=== PATIENT | female | born 1970 | race Caucasian/White ===

== ENCOUNTER 2018-10-24 14:42 | Inpatient (IN) | payer BC ==
--- NOTE | 2018-10-24 15:30 | ED ---
General Adult HPI - General Chief complaint: Abdominal Pain Stated complaint: possible appendicitis Time Seen by Provider: 10/24/18 15:06 Source: patient, RN notes reviewed, old records reviewed Mode of arrival: ambulatory Limitations: no limitations - History of Present Illness Initial comments: 47-year-old female patient past history significant for cholecystectomy and she was approximately 5 years old presents to ED a chief complaint of right lower qu adrant abdominal pain for 2 days. Patient reports that it started yesterday and is waxing and waning. Patient reports that has been persistent today. Patient states that she was seen by her primary care provider who recommended evaluation in the ED for possible appendicitis. Patient reports nausea without emesis. Patient reports decreased appetite. Denies any fevers or chills. Denies any ch donovan to be . Denies any other complaints. Systemic: Pt denies fatigue, fever/chills, rash. Pt denies weakness, night sweats, weight loss. Neuro: Pt denies headache, visual disturbances, syncope or pre-syncope. HEENT: Pt denies ocular discharge or irritation, otalgia, rhinorrhea, pharyngit is or notable lymphadenopathy. Cardiopulmonary: Pt denies chest pain, SOB, heart palpitations, dyspnea on exertion. Abdominal/GI: Pt denies v/d. : Pt denies dysuria, burning w/ urination, frequency/urgency. Denies new onset urinary or bowel incontinence. MSK: Pt denies myalgia, loss of strength or function in extremities. Neuro: Pt denies new onset weakness, paresthesias. - Related Data Allergies Allergy/AdvReac Type Severity Reaction Status Date / Time No Known Allergies Allergy Verified 10/24/18 14:46 Review of Systems ROS Statement: Those systems with pertinent positive or pertinent negative responses have been documented in the HPI. ROS Other: All systems not noted in ROS Statement are negative. Past Medical History Past Medical History: No Reported History History of Any Multi-Drug Resistant Organisms: None Reported Past Surgical History: Cholecystectomy Past Psychological History: No Psychological Hx Reported Smoking Status: Never smoker Past Alcohol Use History: Occasional Past Drug Use History: None Reported General Exam - General Exam Comments Initial Comments: Constitutional: NAD, AOX3, Pt has pleasant affect. HEENT: NC/AT, trachea midline, neck supple, no lymphadenopathy. Posterior pharynx non erythematous, without exudates. External ears appear normal, without discharge. Mucous membranes moist. Eyes PERRLA, EOM intact. There is no scleral icterus. No pallor noted. Cardiopulmonary: RRR, no murmurs, rubs or gallops, no JVD noted. Lungs CTAB in anterior and posterior shannon. No peripheral edema. Abdominal exam: Abdomen soft and non-distended. Abdomen tender to palpation in RLQ, no other areas of abodominal tenderness. Bowel sounds active in LLQ. No hep atosplenomegaly. No ecchymosis Neuro: CN II-XII grossly intact. No nuchal rigidity. No raccon eyes, no valencia sign, no hemotympanum. No cervical spinal tenderness. MSK: No posterior calf tenderness bilaterally, homans sign negative bilaterally. Posterior tibialis and radial pulse +2 bilaterally. Sensation intact in upper and lower extremities. Full active ROM in upper and lower extremities, 5/5 s tregnth. Limitations: no limitations Course Vital Signs 10/24/18 10/24/18 14:44 16:40 Temperature 99.4 F 98.4 F Pulse Rate 120 H 105 H Respiratory 22 18 Rate Blood Pressure 133/89 133/93 O2 Sat by Pulse 100 98 Oximetry Medical Decision Making - Medical Decision Making 47-year-old female patient past history significant for cholecystectomy and she was approximately 5 years old presents to ED a chief complaint of right lower quadrant abdominal pain for 2 days. Patient reports that it started yesterday and is waxing and waning. Patient reports that has been persistent today. Patient states that she was seen by her primary care provider who recommended evaluation in the ED for possible appendicitis. Patient reports nausea without emesis. Patient reports decreased appetite. Denies any fevers or chills. Denies any change to be . Denies any other complaints. Patient vital signs stable, afebrile. Physical exam displayed right lower quadrant tenderness. Laboratory investigations revealed leukocytosis of 17. Less for ketones, otherwise non-impressive. CT abdomen and pelvis display findings consistent with acute appendicitis. Patient initiated on Zosyn. Patient be admitted on-call general surgeon Dr. Reyna. Case discussed with Dr. Sherwood. - Lab Data Result diagrams: 10/24/18 15:28 10/24/18 15:28 Lab Results 10/24/18 10/24/18 10/24/18 Range/Units 15:28 15:28 15:28 WBC 17.4 H (3.8-10.6) k/uL RBC 4.77 (3.80-5.40) m/uL Hgb 14.6 (11.4-16.0) gm/dL Hct 42.5 (34.0-46.0) % MCV 89.1 (80.0-100.0) fL MCH 30.6 (25.0-35.0) pg MCHC 34.4 (31.0-37.0) g/dL RDW 13.6 (11.5-15.5) % Plt Count 248 (150-450) k/uL Neutrophils % 88 % Lymphocytes % 6 % Monocytes % 4 % Eosinophils % 1 % Basophils % 0 % Neutrophils # 15.4 H (1.3-7.7) k/uL Lymphocytes # 1.1 (1.0-4.8) k/uL Monocytes # 0.7 (0-1.0) k/uL Eosinophils # 0.1 (0-0.7) k/uL Basophils # 0.1 (0-0.2) k/uL Sodium 140 (137-145) mmol/L Potassium 4.2 (3.5-5.1) mmol/L Chloride 104 (98-107) mmol/L Carbon Dioxide 21 L (22-30) mmol/L Anion Gap 15 mmol/L BUN 9 (7-17) mg/dL Creatinine 0.73 (0.52-1.04) mg/dL Est GFR (CKD-EPI)AfAm >90 (>60 ml/min/1.73 sqM) Est GFR (CKD-EPI)NonAf >90 (>60 ml/min/1.73 sqM) Glucose 110 H (74-99) mg/dL Plasma Lactic Acid Humberto (0.7-2.0) mmol/L Calcium 9.3 (8.4-10.2) mg/dL Total Bilirubin 1.0 (0.2-1.3) mg/dL AST 20 (14-36) U/L ALT 18 (9-52) U/L Alkaline Phosphatase 67 (38-126) U/L Total Protein 7.6 (6.3-8.2) g/dL Albumin 4.3 (3.5-5.0) g/dL Lipase 240 (23-300) U/L Urine Color Urine Appearance (Clear) Urine pH (5.0-8.0) Ur Specific [facility] (1.001-1.035) Urine Protein (Negative) Urine Glucose (UA) (Negative) Urine Ketones (Negative) Urine Blood (Negative) Urine Nitrite (Negative) Urine Bilirubin (Negative) Urine Urobilinogen (<2.0) mg/dL Ur Leukocyte Esterase (Negative) Urine RBC (0-5) /hpf Urine WBC (0-5) /hpf Ur Squamous Epith Cells (0-4) /hpf Urine Bacteria (None) /hpf Hyaline Casts (0-2) /lpf Urine Mucus (None) /hpf Urine HCG, Qual Not Detected (Not Detectd) 10/24/18 10/24/18 Range/Units 15:28 15:28 WBC (3.8-10.6) k/uL RBC (3.80-5.40) m/uL Hgb (11.4-16.0) gm/dL Hct (34.0-46.0) % MCV (80.0-100.0) fL MCH (25.0-35.0) pg MCHC (31.0-37.0) g/dL RDW (11.5-15.5) % Plt Count (150-450) k/uL Neutrophils % % Lymphocytes % % Monocytes % % Eosinophils % % Basophils % % Neutrophils # (1.3-7.7) k/uL Lymphocytes # (1.0-4.8) k/uL Monocytes # (0-1.0) k/uL Eosinophils # (0-0.7) k/uL Basophils # (0-0.2) k/uL Sodium (137-145) mmol/L Potassium (3.5-5.1) mmol/L Chloride (98-107) mmol/L Carbon Dioxide (22-30) mmol/L Anion Gap mmol/L BUN (7-17) mg/dL Creatinine (0.52-1.04) mg/dL Est GFR (CKD-EPI)AfAm (>60 ml/min/1.73 sqM) Est GFR (CKD-EPI)NonAf (>60 ml/min/1.73 sqM) Glucose (74-99) mg/dL Plasma Lactic Acid Humberto 0.9 (0.7-2.0) mmol/L Calcium (8.4-10.2) mg/dL Total Bilirubin (0.2-1.3) mg/dL AST (14-36) U/L ALT (9-52) U/L Alkaline Phosphatase (38-126) U/L Total Protein (6.3-8.2) g/dL Albumin (3.5-5.0) g/dL Lipase (23-300) U/L Urine Color Yellow Urine Appearance Cloudy H (Clear) Urine pH 6.5 (5.0-8.0) Ur Specific [facility] 1.019 (1.001-1.035) Urine Protein 2+ H (Negative) Urine Glucose (UA) Trace H (Negative) Urine Ketones 4+ H (Negative) Urine Blood Negative (Negative) Urine Nitrite Negative (Negative) Urine Bilirubin 1+ H (Negative) Urine Urobilinogen 2.0 (<2.0) mg/dL Ur Leukocyte Esterase Negative (Negative) Urine RBC 3 (0-5) /hpf Urine WBC 13 H (0-5) /hpf Ur Squamous Epith Cells 4 (0-4) /hpf Urine Bacteria Moderate H (None) /hpf Hyaline Casts 13 H (0-2) /lpf Urine Mucus Many H (None) /hpf Urine HCG, Qual (Not Detectd) Disposition Clinical Impression: Acute appendicitis Disposition: ADMITTED IP TO THIS HOSP Condition: Serious Is patient prescribed a controlled substance at d/c from ED?: No Referrals: Evonne Valencia MD [Primary Care Provider] - 1-2 days
[2018-10-24 15:55] LABS: Appearance,Urine Cloudy (Clear); Bacteria,Urine Moderate /hpf; Bilirubin,Urine 1+ (Negative); Blood,Urine Negative (Negative); Color,Urine Yellow; Glucose,Urine (UA) Trace (Negative); Hyaline Casts,Urine 13 /lpf (0-2); Ketones,Urine 4+ (Negative); Leukocyte Esterase,Urine Negative (Negative); Mucus,Urine Many /hpf; Nitrite,Urine Negative (Negative); PH, Urine 6.5 (5.0-8.0); Protein,Urine 2+ (Negative); RBC,Urine 3 /hpf (0-5); Specific Gravity,Urine 1.019 (1.001-1.035); Squamous Epithelial Cell,Urine 4 /hpf (0-4); WBC,Urine 13 /hpf (0-5)
[2018-10-24 16:01] LABS: Basophils # (A) 0.1 k/uL (0-0.2); Basophils % (A) 0 %; Eosinophils # (A) 0.1 k/uL (0-0.7); Eosinophils % (A) 1 %; HCT 42.5 % (34.0-46.0); HGB 14.6 gm/dL (11.4-16.0); Lymphocytes # (A) 1.1 k/uL (1.0-4.8); Lymphocytes % (A) 6 %; MCH 30.6 pg (25.0-35.0); MCHC 34.4 g/dL (31.0-37.0); MCV 89.1 fL (80.0-100.0); Mean Platelet Volume 7.3; Monocytes # (A) 0.7 k/uL (0-1.0); Monocytes % (A) 4 %; Neutrophils # (A) 15.4 k/uL (1.3-7.7); Neutrophils % (A) 88 %; Platelet Count 248 k/uL (150-450); RBC 4.77 m/uL (3.80-5.40); RDW 13.6 % (11.5-15.5); WBC 17.4 k/uL (3.8-10.6)
[2018-10-24 16:09] LABS: ALT 18 U/L (9-52); AST 20 U/L (14-36); African American GFR (CKD) >90 (>60 ml/min/1.73 sqM); Albumin 4.3 g/dL (3.5-5.0); Alkaline Phosphatase 67 U/L (38-126); Anion Gap 15 mmol/L; Blood Urea Nitrogen 9 mg/dL (7-17); Calcium 9.3 mg/dL (8.4-10.2); Carbon Dioxide 21 mmol/L (22-30); Chloride 104 mmol/L (98-107); Glucose 110 mg/dL (74-99); Potassium 4.2 mmol/L (3.5-5.1); Sodium 140 mmol/L (137-145); Total Protein 7.6 g/dL (6.3-8.2)
--- NOTE | 2018-10-24 16:32 | CT ---
EXAMINATION TYPE: CT abdomen pelvis w con DATE OF EXAM: 10/24/2018 COMPARISON: None HISTORY: RLQ pain CT DLP: 1173.1 mGycm CONTRAST: CT scan of the abdomen and pelvis is performed without Oral Contrast and with IV Contrast, patient in jected with 100 mL of Isovue 300. FINDINGS: LUNG BASES-: No visible nodule. No infiltrate. Right basilar atelectasis. LIVER/GB: No calcified gallstones. No space occupying hepatic lesion. Biliary tree is of normal ca liber. PANCREAS: No inflammation. No distinct mass. SPLEEN: No splenic enlargement. No lesion seen. ADRENALS: No nodule. No thickening. KIDNEYS/BLADDER: No hydronephrosis. No nephrolithiasis. No distinct renal mass. Urinary bladder g rossly unremarkable. BOWEL: Dilated appendix measuring up to 1.8 cm with surrounding inflammatory change and appendicolith . Adjacent fluid identified. No obvious rupture at this time. Distention of small bowel compatible wi th ileus. GENITAL ORGANS: Lateral ovarian cysts noted. Uterus is unremarkable. LYMPH NODES: No greater than 1cm abdominal or pelvic lymph nodes are appreciated. AORTA: No significant abnormality. OSSEOUS STRUCTURES: No significant abnormality is seen. OTHER: No significant additional abnormality is seen. IMPRESSION: 1. Findings compatible with acute appendicitis as discussed above.
[2018-10-24] MEDS ORDERED: PIPERACILLIN-TAZOBACTAM 3.375 GM in SODIUM CHLORIDE 0.9% 100 ML IVPB STA (16:48)
[2018-10-24] MEDS ORDERED: NALOXONE 0.4 MG/ML 1 ML VIAL IV PRN (17:39)
[2018-10-24] MEDS ORDERED: MORPHINE SULFATE 4 MG/ML SYRINGE IV PRN (17:39)
[2018-10-24] MEDS ORDERED: ONDANSETRON 4 MG/2 ML VIAL IVP PRN (17:39)
[2018-10-24] MEDS: SODIUM CHLORIDE 0.9% 1,000 ML IV SCH (18:01)
[2018-10-24 18:55] VITALS: BMI 32.1
[2018-10-25] MEDS: PIPERACILLIN-TAZOBACTAM 3.375 GM in SODIUM CHLORIDE 0.9% 100 ML IVPB SCH ×2 (00:18→09:06)
[2018-10-25] MEDS: SODIUM CHLORIDE 0.9% 1,000 ML IV SCH ×2 (08:15→11:43)
[2018-10-25] MEDS: HEPARIN SODIUM,PORCINE 5,000 UNIT/ML 1 ML VIAL SQ SCH ×2 (08:17→08:50)
[2018-10-25] MEDS ORDERED: IV FLUID CONTINUATION 250 ML IV ONE (08:19)
[2018-10-25] MEDS: PANTOPRAZOLE 40 MG/10 ML VIAL IVP SCH (08:19)
[2018-10-25] MEDS ORDERED: SCOPOLAMINE 1.5MG/72HR PATCH TRANSDERM ONE (08:35)
[2018-10-25] MEDS ORDERED: ONDANSETRON 4 MG/2 ML VIAL IVP ONE (08:35)
[2018-10-25] MEDS ORDERED: DEXAMETHASONE SOD PHOSPHATE 10 MG/ML 1 ML VIAL IV ONE (08:35)
--- NOTE | 2018-10-25 08:52 | P.GSHP ---
History of Present Illness H&P Date: 10/25/18 Chief Complaint: Acute appendicitis This a 47-year-old female who was admitted through the emergency room with complaints of appendicitis. Patient is a 24 hour history of right lower quadrant pain. Her CAT scan shows evidence of appendicitis. Past Medical History Past Medical History: No Reported History History of Any Multi-Drug Resistant Organisms: None Reported Past Surgical History: Cholecystectomy Additional Past Surgical History / Comment(s): wisdom teeth Past Anesthesia/Blood Transfusion Reactions: Motion Sickness, Postoperative Nausea & Vomiting (PONV) Past Psychological History: No Psychological Hx Reported Smoking Status: Never smoker Past Alcohol Use History: Occasional Past Drug Use History: None Reported - Past Family History Mother History Unknown: Yes Medications and Allergies Home Medications Medication Instructions Recorded Confirmed Type Ascorbic Acid [Vitamin C] 500 mg PO DAILY 10/24/18 10/24/18 History Cetirizine HCl [Zyrtec] 10 mg PO DAILY PRN 10/24/18 10/24/18 History Cholecalciferol [Vitamin D3 (25 4,000 unit PO DAILY 10/24/18 10/24/18 History Mcg = 1000 Iu)] Cider Vinegar [Apple Cider Vinegar] 300 mg PO DAILY 10/24/18 10/24/18 History Cyanocobalamin [Vitamin B-12] 500 mcg PO DAILY 10/24/18 10/24/18 History Naproxen Sodium [Aleve] 440 mg PO BID PRN 10/24/18 10/24/18 History Vitamin B-3 1,000mg 1,000 mg PO DAILY 10/24/18 10/24/18 History Allergies Allergy/AdvReac Type Severity Reaction Status Date / Time No Known Allergies Allergy Verified 10/25/18 08:38 Surgical - Exam Vital Signs Temp Pulse Resp BP Pulse Ox 99.4 F 120 H 22 133/89 100 10/24/18 14:44 10/24/18 14:44 10/24/18 14:44 10/24/18 14:44 10/24/18 14:44 - General well developed, well nourished, no distress - Eyes PERRL - ENT normal pinna - Neck no masses - Respiratory normal expansion - Cardiovascular Rhythm: regular - Abdomen Mild right lower quadrant pain Abdomen: soft Results - Labs 10/24/18 15:28 10/24/18 15:28 Abnormal Lab Results - Last 24 Hours (Table) 10/24/18 10/24/18 10/24/18 Range/Units 15:28 15:28 15:28 WBC 17.4 H (3.8-10.6) k/uL Neutrophils # 15.4 H (1.3-7.7) k/uL Carbon Dioxide 21 L (22-30) mmol/L Glucose 110 H (74-99) mg/dL Plasma Lactic Acid Humberto (0.7-2.0) mmol/L Urine Appearance Cloudy H (Clear) Urine Protein 2+ H (Negative) Urine Glucose (UA) Trace H (Negative) Urine Ketones 4+ H (Negative) Urine Bilirubin 1+ H (Negative) Urine WBC 13 H (0-5) /hpf Urine Bacteria Moderate H (None) /hpf Hyaline Casts 13 H (0-2) /lpf Urine Mucus Many H (None) /hpf 10/25/18 Range/Units 01:31 WBC (3.8-10.6) k/uL Neutrophils # (1.3-7.7) k/uL Carbon Dioxide (22-30) mmol/L Glucose (74-99) mg/dL Plasma Lactic Acid Humberto <0.5 L (0.7-2.0) mmol/L Urine Appearance (Clear) Urine Protein (Negative) Urine Glucose (UA) (Negative) Urine Ketones (Negative) Urine Bilirubin (Negative) Urine WBC (0-5) /hpf Urine Bacteria (None) /hpf Hyaline Casts (0-2) /lpf Urine Mucus (None) /hpf Diabetes panel 10/24/18 Range/Units 15:28 Sodium 140 (137-145) mmol/L Potassium 4.2 (3.5-5.1) mmol/L Chloride 104 (98-107) mmol/L Carbon Dioxide 21 L (22-30) mmol/L BUN 9 (7-17) mg/dL Creatinine 0.73 (0.52-1.04) mg/dL Glucose 110 H (74-99) mg/dL Calcium 9.3 (8.4-10.2) mg/dL AST 20 (14-36) U/L ALT 18 (9-52) U/L Alkaline Phosphatase 67 (38-126) U/L Total Protein 7.6 (6.3-8.2) g/dL Albumin 4.3 (3.5-5.0) g/dL Calcium panel 10/24/18 Range/Units 15:28 Calcium 9.3 (8.4-10.2) mg/dL Albumin 4.3 (3.5-5.0) g/dL Pituitary panel 10/24/18 Range/Units 15:28 Sodium 140 (137-145) mmol/L Potassium 4.2 (3.5-5.1) mmol/L Chloride 104 (98-107) mmol/L Carbon Dioxide 21 L (22-30) mmol/L BUN 9 (7-17) mg/dL Creatinine 0.73 (0.52-1.04) mg/dL Glucose 110 H (74-99) mg/dL Calcium 9.3 (8.4-10.2) mg/dL Adrenal panel 10/24/18 Range/Units 15:28 Sodium 140 (137-145) mmol/L Potassium 4.2 (3.5-5.1) mmol/L Chloride 104 (98-107) mmol/L Carbon Dioxide 21 L (22-30) mmol/L BUN 9 (7-17) mg/dL Creatinine 0.73 (0.52-1.04) mg/dL Glucose 110 H (74-99) mg/dL Calcium 9.3 (8.4-10.2) mg/dL Total Bilirubin 1.0 (0.2-1.3) mg/dL AST 20 (14-36) U/L ALT 18 (9-52) U/L Alkaline Phosphatase 67 (38-126) U/L Total Protein 7.6 (6.3-8.2) g/dL Albumin 4.3 (3.5-5.0) g/dL - Imaging CT scan - pelvis: report reviewed (Acute appendicitis) Assessment and Plan Assessment: Acute appendicitis. We'll perform laparoscopic appendectomy.
[2018-10-25 08:55] LABS: Basophils % (A) 0 %; Eosinophils % (A) 0 %; HCT 37.8 % (34.0-46.0); HGB 12.8 gm/dL (11.4-16.0); Lymphocytes # (A) 0.8 k/uL (1.0-4.8); Lymphocytes % (A) 5 %; MCH 30.5 pg (25.0-35.0); MCV 89.8 fL (80.0-100.0); Mean Platelet Volume 7.2; Monocytes # (A) 0.6 k/uL (0-1.0); Monocytes % (A) 4 %; Neutrophils # (A) 13.7 k/uL (1.3-7.7); Neutrophils % (A) 90 %; Platelet Count 215 k/uL (150-450); RBC 4.21 m/uL (3.80-5.40); RDW 13.4 % (11.5-15.5); WBC 15.2 k/uL (3.8-10.6)
[2018-10-25 09:03] LABS: African American GFR (CKD) >90 (>60 ml/min/1.73 sqM); Anion Gap 13 mmol/L; Blood Urea Nitrogen 9 mg/dL (7-17); Calcium 8.4 mg/dL (8.4-10.2); Carbon Dioxide 19 mmol/L (22-30); Chloride 108 mmol/L (98-107); Glucose 104 mg/dL (74-99); Potassium 3.8 mmol/L (3.5-5.1); Sodium 140 mmol/L (137-145)
[2018-10-25] MEDS ORDERED: IV FLUID CONTINUATION 800 ML IV ONE (09:04)
[2018-10-25] MEDS ORDERED: SUCCINYLCHOLINE CHLORIDE 100 MG/5 ML SYR IV ONE (09:05)
[2018-10-25] MEDS ORDERED: KETOROLAC 30 MG/ML 1 ML VIAL ONE (09:05)
[2018-10-25] MEDS ORDERED: ROCURONIUM BROMIDE 10 MG/ML 10 ML VIAL IV ONE (09:05)
[2018-10-25] MEDS ORDERED: MIDAZOLAM 2 MG/2 ML VIAL ONE (09:05)
[2018-10-25] MEDS ORDERED: NEOSTIGMINE 1 MG/ML 10 ML VIAL ONE (09:05)
[2018-10-25] MEDS ORDERED: PROPOFOL 10 MG/ML 20 ML VIAL IV ONE (09:05)
[2018-10-25] MEDS ORDERED: HYDROmorphone (PF) 1 MG/ML ONE (09:05)
[2018-10-25] MEDS ORDERED: LIDOCAINE 1% INJ 10MG/ML (20 ML MDV) ONE (09:05)
[2018-10-25] MEDS ORDERED: GLYCOPYRROLATE 0.2 MG/ML 2 ML VIAL ONE (09:05)
[2018-10-25] MEDS ORDERED: fentaNYL (PF) 50 MCG/ML 2 ML AMP ONE (09:05)
[2018-10-25] MEDS ORDERED: BUPIVACAINE (PF) 0.5% 30 ML VIAL SQ ONE (09:26)
[2018-10-25] MEDS ORDERED: LACTATED RINGERS 1,000 ML IV ONE ×2 (10:04→10:35)
[2018-10-25] MEDS ORDERED: NALOXONE 0.4 MG/ML 1 ML VIAL IV PRN (10:35)
[2018-10-25] MEDS ORDERED: METOCLOPRAMIDE 5 MG/ML 2 ML VIAL IVP PRN (10:35)
[2018-10-25] MEDS ORDERED: ONDANSETRON 4 MG/2 ML VIAL IVP PRN (10:35)
[2018-10-25] MEDS ORDERED: ACETAMINOPHEN TAB 325 MG TAB PO PRN (10:35)
[2018-10-25] MEDS ORDERED: ACETAMINOPHEN IV (For NPO) 1,000 MG in EMPTY BAG 1 BAG IVPB ONE (11:00)
--- NOTE | 2018-10-25 11:26 | P.OP ---
Date of Procedure: 10/25/18 Preoperative Diagnosis: Acute appendicitis Postoperative Diagnosis: Acute perforated appendicitis with abscess Procedure(s) Performed: Less laparoscopy Drainage of pelvic abscess Open appendectomy Anesthesia: TORY Surgeon: Scott Ang Pathology: other (Appendix, fecalith) Condition: stable Disposition: PACU Description of Procedure: HThe patient's placed on the operating table in the supine position. The patient received general anesthesia. The abdomen was prepped and draped in the usual sterile fashion. The skin was anesthetized 1% local Xylocaine at the trocar sites. Using an 11 blade the skin was incised at the umbilicus. The umbilicus was grasped with a Elsie clamp and then a Veress needle was placed into the peritoneal cavity. Position of the Veress needle was confirmed with positive drop test. After adequate insufflation a 5 mm trocar was placed into the peritoneal cavity. The abdomen was further insufflated. And then the laparoscope was placed in the peritoneal cavity. Next a 5 mm trocar was placed in the midline suprapubic position. And then a 10 mm trocar was placed in the midline epigastric position. The patient was rotated with the right side up and in Trendelenburg. The appendix was visualized. The appendix appeared to be inflamed. The appendix was grasped and rotated medially. There was a abscess lysed. There appeared to be a perforation of the appendix with abscess. The abscess cavity is irrigated and aspirated. His was quite firmly attached to the bowel. It was impossible dissect the appendix to the inflammation. This point decided to perform an open appendectomy. The trochars withdrawn. The skin was incised in the midline in the periumbilical area. The fascia was divided with cautery. And then the appendix and cecum were visualized. The cecum was brought into the wound. And then the appendix was bluntly dissected off the cecum. The mesentery the appendix was divided using the Harmonic scissors. The appendix was ligated using a Endoloop. And then the appendix was transected using Harmonic scissors. The abdomen was irrigated there is no bleeding seen. The EITAN drain is placed in the right pelvis and brought out through the 5 mm trocar site. The fascia was closed with #1 PDS suture. Skin was closed jennifer. Patient top she will was sent to recovery room stable condition.
[2018-10-25] MEDS: KETOROLAC 30 MG/ML 1 ML VIAL IVP SCH ×3 (11:44→23:55)
[2018-10-25] MEDS ORDERED: LORATADINE 10 MG TAB PO PRN (15:24)
[2018-10-25] MEDS: HYDROmorphone 1 MG/ML 1 ML SYRINGE IVP PRN ×2 (15:24→20:43)
--- NOTE | 2018-10-25 15:43 | P.CONS ---
History of Present Illness - Reason for Consult Consult date: 10/25/18 Perforated appendicitis Requesting physician: Scott Ang - Chief Complaint Abdominal pain 2 days - History of Present Illness Patient is a 47-year-old female otherwise healthy presenting to the ER at [facility] yesterday afternoon with a chief complaints of 1 day history of abdominal pain, the patient said the pain was mostly in the right lower abdominal area and started on Sunday pain described to be more of a shop in nature and has gone almost to 8 out of 10 in severity by the time she presented to the hospital at a later patient has felt nauseated but no vomiting and denies having any diarrhea or any constipation the patient did have some chills but denies high-grade fever with the symptoms the patient presented to the hospital patient on arrival to the area did have low-grade fever of 99.4, the patient did have elevated white count was 17.[address] of abdominal pelvis that has been suggestive of acute appendicitis the patient has been taken to the OR this morning she was noticed to have perforated appendicitis with a pelvic abscess status post open appendectomy and drainage of this abscess the patient was started on Zosyn and infectious disease was consulted for further recommendation regarding antibiotic therapy, patient currently denies having any recent antibiotic exposure Review of Systems Positive point has been mentioned in the HPI rest of the systems are negative Past Medical History Past Medical History: No Reported History History of Any Multi-Drug Resistant Organisms: None Reported Past Surgical History: Cholecystectomy Additional Past Surgical History / Comment(s): wisdom teeth Past Anesthesia/Blood Transfusion Reactions: Motion Sickness, Postoperative Nausea & Vomiting (PONV) Past Psychological History: No Psychological Hx Reported Smoking Status: Never smoker Past Alcohol Use History: Occasional Past Drug Use History: None Reported - Past Family History Mother History Unknown: Yes Medications and Allergies Home Medications Medication Instructions Recorded Confirmed Type Ascorbic Acid [Vitamin C] 500 mg PO DAILY 10/24/18 10/24/18 History Cetirizine HCl [Zyrtec] 10 mg PO DAILY PRN 10/24/18 10/24/18 History Cholecalciferol [Vitamin D3 (25 4,000 unit PO DAILY 10/24/18 10/24/18 History Mcg = 1000 Iu)] Cider Vinegar [Apple Cider Vinegar] 300 mg PO DAILY 10/24/18 10/24/18 History Cyanocobalamin [Vitamin B-12] 500 mcg PO DAILY 10/24/18 10/24/18 History Naproxen Sodium [Aleve] 440 mg PO BID PRN 10/24/18 10/24/18 History Vitamin B-3 1,000mg 1,000 mg PO DAILY 10/24/18 10/24/18 History Allergies Allergy/AdvReac Type Severity Reaction Status Date / Time No Known Allergies Allergy Verified 10/25/18 08:38 Physical Exam Vitals: Vital Signs Temp Pulse Pulse Resp BP BP Pulse Ox 10/25/18 11:15 98.2 F 98 16 108/66 95 10/25/18 10:45 95 16 126/69 95 10/25/18 10:30 83 16 110/67 100 10/25/18 10:18 98.5 F 85 12 109/64 100 10/25/18 08:30 99.3 F 110 H 16 138/82 100 10/25/18 08:03 98.8 F 115 H 24 118/76 99 10/24/18 23:00 98.3 F 113 H 18 119/71 94 L 10/24/18 18:48 98.3 F 128 H 20 128/81 95 10/24/18 18:01 110 H 18 136/92 98 10/24/18 16:40 98.4 F 105 H 18 133/93 98 10/24/18 14:44 99.4 F 120 H 22 133/89 100 Intake and Output 10/24/18 10/25/18 10/25/18 22:59 06:59 14:59 Intake Total 580 0 1250 Output Total 90 Balance 580 0 1160 Intake: IV 1250 Oral 580 0 Output: Estimated Blood Loss 90 GENERAL DESCRIPTION: Middle-aged female lying in bed, no distress. No tachypnea or accessory muscle of respiration use. HEENT: Shows Pallor , no scleral icterus. Oral mucous membrane is dry. No pharyngeal erythema or thrush NECK: Trachea central, no thyromegaly. LUNGS: Unlabored breathing. Clear to auscultation anteriorly. No wheeze or crackle. HEART: S1, S2, regular rate and rhythm. No loud murmur ABDOMEN: Soft, mild right lower quadrant tenderness , no guarding or rigidity, no organomegaly EXTREMITIES: No edema of feet. SKIN: No rash, no masses palpable. NEUROLOGICAL: The patient is awake, alert, oriented x3, mood and affect normal. Results CBC & Chem 7: 10/25/18 08:03 10/25/18 08:03 Labs: Abnormal Lab Results - Last 24 Hours (Table) 10/24/18 10/24/18 10/24/18 Range/Units 15:28 15:28 15:28 WBC 17.4 H (3.8-10.6) k/uL Neutrophils # 15.4 H (1.3-7.7) k/uL Lymphocytes # (1.0-4.8) k/uL Chloride (98-107) mmol/L Carbon Dioxide 21 L (22-30) mmol/L Glucose 110 H (74-99) mg/dL Plasma Lactic Acid Humberto (0.7-2.0) mmol/L Urine Appearance Cloudy H (Clear) Urine Protein 2+ H (Negative) Urine Glucose (UA) Trace H (Negative) Urine Ketones 4+ H (Negative) Urine Bilirubin 1+ H (Negative) Urine WBC 13 H (0-5) /hpf Urine Bacteria Moderate H (None) /hpf Hyaline Casts 13 H (0-2) /lpf Urine Mucus Many H (None) /hpf 10/25/18 10/25/18 10/25/18 Range/Units 01:31 08:03 08:03 WBC 15.2 H (3.8-10.6) k/uL Neutrophils # 13.7 H (1.3-7.7) k/uL Lymphocytes # 0.8 L (1.0-4.8) k/uL Chloride 108 H (98-107) mmol/L Carbon Dioxide 19 L (22-30) mmol/L Glucose 104 H (74-99) mg/dL Plasma Lactic Acid Humberto <0.5 L (0.7-2.0) mmol/L Urine Appearance (Clear) Urine Protein (Negative) Urine Glucose (UA) (Negative) Urine Ketones (Negative) Urine Bilirubin (Negative) Urine WBC (0-5) /hpf Urine Bacteria (None) /hpf Hyaline Casts (0-2) /lpf Urine Mucus (None) /hpf Assessment and Plan Assessment: 1-patient presented to hospital with abdominal pain in this patient who did have noted fever and elevated white count with concern for acute appendicitis on surgery noticed to have pelvic abscess and perforated appendicitis will need to cover for enteric gram-negative both aerobes and anaerobes in this patient who do not have any history of hospitalization or antibiotic exposure could be sensi tive pathogen such as E. coli and Bacteroides species (1) Pelvic abscess Current Visit: Yes Status: Acute Code(s): TAA6086 - SNOMED Code(s): 579685766 (2) Perforated appendicitis Current Visit: Yes Status: Acute Code(s): K35.32 - ACUTE APPENDICITIS WITH PERF AND LOC PERITONITIS, W/O ABSCS SNOMED Code(s): 45740751 Plan: 1-discontinue Zosyn 2-start the patient on Unasyn 3 g every 6 hours 3-gentle IV fluid We will follow on clinical condition and cultures to further adjust medication if needed Thank you for this consultation will follow this patient with you Time with Patient: Greater than 30
[2018-10-25] MEDS: AMPICILLIN-SULBACTAM 3 GM in SODIUM CHLORIDE 0.9% 100 ML IVPB SCH ×2 (18:56→23:55)
[2018-10-25] MEDS: FAMOTIDINE 20 MG TAB PO SCH (20:44)
[2018-10-26] MEDS: HYDROmorphone 1 MG/ML 1 ML SYRINGE IVP PRN (05:53)
[2018-10-26] MEDS: KETOROLAC 30 MG/ML 1 ML VIAL IVP SCH ×3 (05:54→18:03)
[2018-10-26] MEDS: AMPICILLIN-SULBACTAM 3 GM in SODIUM CHLORIDE 0.9% 100 ML IVPB SCH ×3 (05:54→18:09)
[2018-10-26 06:13] LABS: Basophils % (A) 0 %; Eosinophils # (A) 0.1 k/uL (0-0.7); Eosinophils % (A) 1 %; HCT 32.1 % (34.0-46.0); HGB 10.7 gm/dL (11.4-16.0); Lymphocytes % (A) 8 %; MCH 30.2 pg (25.0-35.0); MCHC 33.4 g/dL (31.0-37.0); MCV 90.7 fL (80.0-100.0); Mean Platelet Volume 7.5; Monocytes # (A) 0.6 k/uL (0-1.0); Monocytes % (A) 5 %; Neutrophils # (A) 10.7 k/uL (1.3-7.7); Neutrophils % (A) 86 %; Platelet Count 213 k/uL (150-450); RBC 3.54 m/uL (3.80-5.40); RDW 14.6 % (11.5-15.5); WBC 12.5 k/uL (3.8-10.6)
[2018-10-26 06:28] LABS: African American GFR (CKD) >90 (>60 ml/min/1.73 sqM); Anion Gap 10 mmol/L; Blood Urea Nitrogen 14 mg/dL (7-17); Calcium 8.3 mg/dL (8.4-10.2); Carbon Dioxide 21 mmol/L (22-30); Chloride 109 mmol/L (98-107); Glucose 92 mg/dL (74-99); Potassium 4.1 mmol/L (3.5-5.1); Sodium 140 mmol/L (137-145)
[2018-10-26] MEDS: PANTOPRAZOLE 40 MG/10 ML VIAL IVP SCH (08:27)
[2018-10-26] MEDS: FAMOTIDINE 20 MG TAB PO SCH ×2 (08:28→21:21)
[2018-10-26] MEDS: ENOXAPARIN 40 MG/0.4 ML SYRINGE SQ SCH (08:38)
--- NOTE | 2018-10-26 09:12 | P.CONS ---
History of Present Illness - Reason for Consult Consult date: 10/25/18 appendicitis - Chief Complaint RLQ pain - History of Present Illness Adilia Christianson is a 47 yo F with no significant PMH who presented to the ED at the request of her PCP for a 2 day history of waxing and waning RLQ pain. She denies any fevers, chills, or vomiting but does endorse nausea and poor appetite. Hx cholecystectomy in childhood. In the ED, vitals stable, WBC 17k urine ketone positive. Pt was taken for appendectomy. In the OR an abscess was noted and the appendix was adherent to adjacent bowel so was converted to open appendectomy. Her pain is improved after surgery but still not much appetite. Review of Systems All systems: negative Constitutional: Reports malaise, Reports poor appetite, Denies chills, Denies fe miller Eyes: denies blurred vision, denies pain Ears, nose, mouth and throat: Denies headache, Denies sore throat Cardiovascular: Denies chest pain, Denies shortness of breath Respiratory: Denies cough Gastrointestinal: Reports abdominal pain, Reports loss of appetite, Reports nausea, Denies diarrhea, Denies vomiting Genitourinary: Denies dysuria, Denies hematuria Musculoskeletal: Denies myalgias Integumentary: Denies pruritus, Denies rash Neurological: Denies numbness, Denies weakness Psychiatric: Denies anxiety, Denies depression Endocrine: Denies fatigue, Denies weight change Past Medical History Past Medical History: No Reported History History of Any Multi-Drug Resistant Organisms: None Reported Past Surgical History: Cholecystectomy Additional Past Surgical History / Comment(s): wisdom teeth Past Anesthesia/Blood Transfusion Reactions: Motion Sickness, Postoperative Stefan sea & Vomiting (PONV) Past Psychological History: No Psychological Hx Reported Smoking Status: Never smoker Past Alcohol Use History: Occasional Past Drug Use History: None Reported - Past Family History Mother History Unknown: Yes Medications and Allergies Home Medications Medication Instructions Recorded Confirmed Type Ascorbic Acid [Vitamin C] 500 mg PO DAILY 10/24/18 10/24/18 History Cetirizine HCl [Zyrtec] 10 mg PO DAILY PRN 10/24/18 10/24/18 History Cholecalciferol [Vitamin D3 (25 4,000 unit PO DAILY 10/24/18 10/24/18 History Mcg = 1000 Iu)] Cider Vinegar [Apple Cider Vinegar] 300 mg PO DAILY 10/24/18 10/24/18 History Cyanocobalamin [Vitamin B-12] 500 mcg PO DAILY 10/24/18 10/24/18 History Naproxen Sodium [Aleve] 440 mg PO BID PRN 10/24/18 10/24/18 History Vitamin B-3 1,000mg 1,000 mg PO DAILY 10/24/18 10/24/18 History Docusate [Colace] 100 mg PO BID #20 capsule 10/25/18 Rx HYDROcodone/APAP 5-325MG [[place] 1 tab PO Q6HR PRN #10 tab 10/25/18 Rx 5-325] Allergies Allergy/AdvReac Type Severity Reaction Status Date / Time No Known Allergies Allergy Verified 10/25/18 08:38 Physical Exam Vitals: Vital Signs Temp Pulse Pulse Resp BP BP Pulse Ox 10/25/18 15:00 95 16 104/69 94 L 10/25/18 14:16 89 16 100/64 96 10/25/18 13:00 89 16 97/59 94 L 10/25/18 12:30 88 16 99/63 92 L 10/25/18 12:00 89 16 92/58 92 L 10/25/18 11:45 92 16 93/61 93 L 10/25/18 11:30 95 16 99/60 91 L 10/25/18 11:15 98.2 F 98 16 108/66 95 10/25/18 10:45 95 16 126/69 95 10/25/18 10:30 83 16 110/67 100 10/25/18 10:18 98.5 F 85 12 109/64 100 10/25/18 08:30 99.3 F 110 H 16 138/82 100 10/25/18 08:03 98.8 F 115 H 24 118/76 99 10/24/18 23:00 98.3 F 113 H 18 119/71 94 L 10/24/18 18:48 98.3 F 128 H 20 128/81 95 10/24/18 18:01 110 H 18 136/92 98 10/24/18 16:40 98.4 F 105 H 18 133/93 98 Intake and Output 10/25/18 10/25/18 10/25/18 06:59 14:59 22:59 Intake Total 0 1250 Output Total 90 180 Balance 0 1160 -180 Intake: IV 1250 Oral 0 Output: Urine 180 Estimated Blood Loss 90 Other: # Voids 0 1 General: well nourished, well developed, NAD. Vitals reviewed Eyes: PERRL, EOMI, conjunctiva normal HENT: normocephalic, mucus membranes moist Neck: supple, no JVD Lungs: normal respiratory effort, no wheezes or rales CV: Regular rate and rhythm, no murmur. Peripheral pulses 2+ Abdomen: soft, generalized TTP. EITAN drain in place with serosanguinous output Lymph: no cervical or axillary LAD Skin: warm and dry. Neuro: A&Ox3, normal mood and affect Results CBC & Chem 7: 10/26/18 06:01 10/26/18 06:01 Labs: Abnormal Lab Results - Last 24 Hours (Table) 10/24/18 10/24/18 10/24/18 Range/Units 15:28 15:28 15:28 WBC 17.4 H (3.8-10.6) k/uL Neutrophils # 15.4 H (1.3-7.7) k/uL Lymphocytes # (1.0-4.8) k/uL Chloride (98-107) mmol/L Carbon Dioxide 21 L (22-30) mmol/L Glucose 110 H (74-99) mg/dL Plasma Lactic Acid Humberto (0.7-2.0) mmol/L Urine Appearance Cloudy H (Clear) Urine Protein 2+ H (Negative) Urine Glucose (UA) Trace H (Negative) Urine Ketones 4+ H (Negative) Urine Bilirubin 1+ H (Negative) Urine WBC 13 H (0-5) /hpf Urine Bacteria Moderate H (None) /hpf Hyaline Casts 13 H (0-2) /lpf Urine Mucus Many H (None) /hpf 10/25/18 10/25/18 10/25/18 Range/Units 01:31 08:03 08:03 WBC 15.2 H (3.8-10.6) k/uL Neutrophils # 13.7 H (1.3-7.7) k/uL Lymphocytes # 0.8 L (1.0-4.8) k/uL Chloride 108 H (98-107) mmol/L Carbon Dioxide 19 L (22-30) mmol/L Glucose 104 H (74-99) mg/dL Plasma Lactic Acid Humberto <0.5 L (0.7-2.0) mmol/L Urine Appearance (Clear) Urine Protein (Negative) Urine Glucose (UA) (Negative) Urine Ketones (Negative) Urine Bilirubin (Negative) Urine WBC (0-5) /hpf Urine Bacteria (None) /hpf Hyaline Casts (0-2) /lpf Urine Mucus (None) /hpf Assessment and Plan (1) Perforated appendicitis Current Visit: Yes Status: Acute Code(s): K35.32 - ACUTE APPENDICITIS WITH PERF AND LOC PERITONITIS, W/O ABSCS SNOMED Code(s): 88409829 (2) Pelvic abscess Current Visit: Yes Status: Acute Code(s): FXH6923 - SNOMED Code(s): 272248593 Plan: 1. Perforated appendicitis. ID on board and abx switched to unasyn. Agree with antibiotic choice. Recommend discharge on augmentin. Pain control per primary DVT prophylaxis lovenox GI prophylaxis pepcid
--- NOTE | 2018-10-26 10:43 | CONS ---
CONSULTATION DATE OF SERVICE: 10/25/2018 REASON FOR CONSULTATION: Advice regarding elevated WBC and other medical issues requested by Dr. Ang. HISTORY OF PRESENT ILLNESS: This 47-year-old woman with a past medical history of multiple medical problems including history of cholecystectomy, history of postoperative nausea, vomiting, being followed by Dr. Evonne Valencia in the outpatient setting was admitted with complaints of abdominal pain. The possibility of appendicitis was considered and the abdomen and pelvis CAT scan showed evidence of acute appendicitis. The patient underwent appendectomy an as well as drainage of the pelvic abscess and open appendectomy by Dr. Ang for acute perforated appendicitis with abscess. The patient will be closely monitored. Patient is started on broad-spectrum IV antibiotics. There is no history of fever or rigors. No history of headache, loss of consciousness, chest pain or palpitations at this time. PAST MEDICAL HISTORY: History of cholecystectomy. MEDICATIONS: Medications prior to admission, home medications are: 1. Zyrtec 10 mg daily p.r.n. 2. Vitamin D3, 1000 mg p.o. daily. 3. Aleve 440 mg b.i.d. p.r.n. 4. Apple cider vinegar 300 mg p.o. daily. 5. Vitamin C 500 mg p.o. daily. 6. Vitamin B12, 500 mcg p.o. daily. 7. Vitamin D3, 4000 daily. 8. [place] 5 mg q.6 p.r.n. 9. Colace 100 mg p.o. b.i.d. ALLERGIES: Allergies are none. FAMILY HISTORY: No history of heart disease or strokes in the family. SOCIAL HISTORY: No history of smoking. No history of alcohol intake. REVIEW OF SYSTEMS: ENT: No diminished hearing or diminished vision. CARDIOVASCULAR SYSTEM: No angina. RESPIRATORY SYSTEM: As mentioned earlier. GI: As mentioned earlier. : No dysuria. NERVOUS SYSTEM: No numbness or weakness. ALLERGY/IMMUNOLOGY: No asthma. MUSCULOSKELETAL: As mentioned earlier. HEMATOLOGY/ONCOLOGY: No history of anemia. ENDOCRINE: No history of diabetes or hypothyroidism. CONSTITUTIONAL: As mentioned earlier. DERMATOLOGY: Negative. RHEUMATOLOGY: Negative. PSYCHIATRY: As mentioned earlier. PHYSICAL EXAMINATION: Patient is alert and oriented x3. Pulse 89, blood pressure 107/70, respirations 16, temperature is 98.6, pulse ox 95% on room air. HEENT: Conjunctivae normal. Oral mucosa moist. NECK: No jugular venous distention. No carotid bruit. No lymph node enlargement. CARDIOVASCULAR: S1 and S2 muffled. No S3, no S4. RESPIRATORY: Breath sounds diminished in the bases. No rhonchi, no crackles. ABDOMEN: Soft. Status post surgery. LEGS: No edema, no swelling. NERVOUS SYSTEM: Higher function as mentioned earlier. Moves all 4 limbs. No focal motor or sensory deficits. LYMPHATICS: No lymphadenopathy of the neck, axillae or groin. SKIN: No ulcer, rash or bleeding. JOINTS: No active deforming arthropathy. LABS: WBC 15.2, hemoglobin is 12.8, sodium 140, potassium 3.8. ASSESSMENT: 1. Acute perforated appendicitis with abscess, status post drainage of the pelvic abscess and open appendectomy with possible sepsis, present on admission. 2. History of cholecystectomy. 3. Increased WBC. 4. Increased random blood sugar. RECOMMENDATIONS AND DISCUSSION: In this 47-year-old woman who presented with multiple medical issues, at this time I recommend to continue the current medications, continue symptomatic treatment. Continue with broad-spectrum IV antibiotics. Follow the cultures. Repeat labs. Closely follow with Surgery and Infectious Disease. We will continue to monitor. DVT prophylaxis. Proton pump inhibitors. Resume the home medications once the patient is p.o. Otherwise we will follow the patient closely with you. Thank you Dr. Ang for letting us participate in the care of this patient. TORIE / DUNIA: [id number] /
--- NOTE | 2018-10-26 14:54 | P.PN ---
Subjective Progress Note Date: 10/26/18 CHIEF COMPLAINT: Ruptured appendicitis HISTORY OF PRESENT ILLNESS: The patient is a 47-year-old female postop day 1 status post open appendectomy, 10/25/2018. Her pain is tolerable. No nausea or vomiting. ROS: No reports of nausea and vomiting. No bowel movements. No fevers or chills. No new chest pain. No productive sputum PHYSICAL EXAM: VITAL SIGNS: Reviewed CONSTITUTIONAL: Well developed and in no acute distress. EYES: Conjuctivae without sclera icterus. Extraocular movements grossly intact. HEAD, EARS, NOSE, THROAT: Moist buccal mucosa. Head is atraumatic, normocephalic. Hears conversational speech. No nasal drainage. RESPIRATORY: Non-labored respirations and equal bilateral excursions. CARDIOVASCULAR: Palpable 2+ radial pulses. Regular rate. Regular rhythm. ABDOMEN: Incisions clean dry and intact. Soft. No peritonitis. Minimal tenderness left upper quadrant. MUSCULOSKELETAL: No gross deformity of the lower extremities noted. No clubbing. No cyanosis. SKIN: Good skin turgor. Well perfused. NEUROLOGIC: Cranial nerves I through XII grossly intact. No focal or lateralizing signs. PSYCH: Appropriate affect. Alert and oriented to person, place and time. CLINCAL LABS: White blood cell count improved from 17,000 and 12,000. ASSESSMENT: 1. Ruptured appendicitis PLAN: 1. Continue clear liquid 2. Await bowel function. Objective - Vital Signs Vital signs: Vital Signs Temp 98.1 F 10/25/18 23:00 Pulse 89 10/26/18 08:00 Resp 16 10/26/18 08:00 BP 92/63 10/26/18 08:00 Pulse Ox 99 10/26/18 08:00 Intake & Output 10/25/18 10/26/18 10/26/18 18:59 06:59 18:59 Intake Total 1250 720 Output Total 325 635 100 Balance 925 85 -100 Intake: IV 1250 Oral 720 Output: Drainage 55 85 Abdomen 55 85 Urine 180 550 100 Estimated Blood Loss 90 Other: # Voids 1 1 - Labs CBC & Chem 7: 10/26/18 06:01 10/26/18 06:01 Labs: Abnormal Lab Results - Last 24 Hours (Table) 10/26/18 10/26/18 Range/Units 06:01 06:01 WBC 12.5 H (3.8-10.6) k/uL RBC 3.54 L (3.80-5.40) m/uL Hgb 10.7 L (11.4-16.0) gm/dL Hct 32.1 L (34.0-46.0) % Neutrophils # 10.7 H (1.3-7.7) k/uL Chloride 109 H (98-107) mmol/L Carbon Dioxide 21 L (22-30) mmol/L Calcium 8.3 L (8.4-10.2) mg/dL Microbiology - Last 24 Hours (Table) 10/24/18 17:45 Blood Culture - Preliminary Blood No Growth after 24 hours
--- NOTE | 2018-10-26 16:55 | PN ---
PROGRESS NOTE DATE OF SERVICE: 10/26/2018. I am covering for Dr. Meyer. This 47-year-old woman was admitted after acute appendicits is being closely monitored at this time. No chest pain. No palpitation. No fever. The patient is on broad- spectrum IV antibiotics. WBC still elevated 12.5. PHYSICAL EXAMINATION: On exam, alert and oriented x3. Pulse 79, blood pressure 98/64, respiration 18, temperature 97.6, pulse ox 100% on room air. HEENT: Conjunctivae normal. NECK: No jugular venous distention. CARDIOVASCULAR: S1, S2 muffled. RESPIRATORY: Breath sounds diminished in the bases. No rhonchi. ABDOMEN: Soft, status post surgery. LEGS: No edema. NERVOUS SYSTEM: No focal deficits. LABS: WBC 12.5, hemoglobin 10.7 sodium 140, potassium 4.1. ASSESSMENT: 1. Acute perforated appendicitis with abscess with possible sepsis, present on admission, status post drainage of the pelvic abscess, open appendectomy. 2. History of cholecystectomy. 3. Increased WBC. 4. Relative hypotension. 5. Increased random blood sugar. 6. Anemia, normocytic anemia of chronic disease. RECOMMENDATIONS AND DISCUSSION: This 47-year-old woman who presented with multiple medical issues, at this time I would recommend to continue current medications, continue symptomatic treatment with broad- spectrum IV antibiotics. Otherwise, I would recommend repeat labs in the morning. Continue to monitor. Follow cultures. Patient is on IV Unasyn. Infectious Disease has been consulted for further recommendations. Closely follow with Surgery. MMODL / IJN: [id number] / TISHA
[2018-10-26] MEDS: LACTATED RINGERS 1,000 ML IV SCH (17:00)
--- NOTE | 2018-10-26 23:49 | PN ---
PROGRESS NOTE DATE OF SERVICE: 10/26/2018. REASON FOR FOLLOW UP: A pelvic abscess from ruptured appendicitis. INTERVAL HISTORY: The patient is currently afebrile. Patient has been breathing comfortably. Complaining of some right lower quadrant pain from drainage catheter which is draining currently bloody stained secretion. No purulence. Denies any chest pain, shortness of breath or cough. Currently tolerating a clear liquid diet. No diarrhea. PHYSICAL EXAMINATION: Blood pressure 129/66, pulse of 80. Temperature 97.8. She is 100% on room air. General description is a middle-aged female up in the room in no distress. Respiratory system: Unlabored breathing. Clear to auscultation anteriorly. Heart S1, S2. Regular rate and rhythm. Abdomen soft, no tenderness. LABS: Hemoglobin is 10.7, white count 12.5, BUN of 14, creatinine 0.63. Blood cultures have been negative. DIAGNOSTIC IMPRESSION AND PLAN: Patient with a pelvic abscess from a ruptured appendicitis, status post open appendectomy and drainage of the abscess wound culture. Blood cultures have been negative so far. Currently on Unasyn to continue while waiting for resumption of hopefully finish therapy with oral antibiotics. Continue supportive care. MMODL / IJN: [id number] /
[2018-10-27] MEDS: AMPICILLIN-SULBACTAM 3 GM in SODIUM CHLORIDE 0.9% 100 ML IVPB SCH ×4 (00:38→18:05)
[2018-10-27] MEDS: KETOROLAC 30 MG/ML 1 ML VIAL IVP SCH ×2 (00:38→06:43)
[2018-10-27] MEDS: LACTATED RINGERS 1,000 ML IV SCH ×3 (06:40→19:52)
[2018-10-27] MEDS: HYDROmorphone 1 MG/ML 1 ML SYRINGE IVP PRN (06:45)
[2018-10-27] MEDS: FAMOTIDINE 20 MG TAB PO SCH (08:37)
[2018-10-27] MEDS: PANTOPRAZOLE 40 MG/10 ML VIAL IVP SCH (08:38)
[2018-10-27] MEDS: ENOXAPARIN 40 MG/0.4 ML SYRINGE SQ SCH (08:39)
[2018-10-27 12:15] LABS: African American GFR (CKD) >90 (>60 ml/min/1.73 sqM); Anion Gap 10 mmol/L; Blood Urea Nitrogen 9 mg/dL (7-17); Calcium 8.3 mg/dL (8.4-10.2); Carbon Dioxide 24 mmol/L (22-30); Chloride 105 mmol/L (98-107); Glucose 90 mg/dL (74-99); Potassium 3.6 mmol/L (3.5-5.1); Sodium 139 mmol/L (137-145)
[2018-10-27 12:17] LABS: Basophils % (A) 0 %; Eosinophils # (A) 0.1 k/uL (0-0.7); Eosinophils % (A) 2 %; HCT 29.3 % (34.0-46.0); HGB 9.7 gm/dL (11.4-16.0); Lymphocytes % (A) 16 %; MCH 29.5 pg (25.0-35.0); MCV 89.5 fL (80.0-100.0); Mean Platelet Volume 7.1; Monocytes # (A) 0.4 k/uL (0-1.0); Monocytes % (A) 7 %; Neutrophils # (A) 4.3 k/uL (1.3-7.7); Neutrophils % (A) 73 %; Platelet Count 241 k/uL (150-450); RBC 3.27 m/uL (3.80-5.40); RDW 13.3 % (11.5-15.5)
--- NOTE | 2018-10-27 14:07 | P.PN ---
Subjective Progress Note Date: 10/27/18 CHIEF COMPLAINT: Ruptured appendicitis HISTORY OF PRESENT ILLNESS: The patient is a 47-year-old female postop day 2 status post open appendectomy, 10/25/2018. Her pain is tolerable. No nausea or vomiting. She is passing flatus. She is ambulating frequently. ROS: No reports of nausea and vomiting. No fevers or chills. No new chest pain. No productive sputum PHYSICAL EXAM: VITAL SIGNS: Reviewed CONSTITUTIONAL: Well developed and in no acute distress. EYES: Conjuctivae without sclera icterus. Extraocular movements grossly intact. HEAD, EARS, NOSE, THROAT: Moist buccal mucosa. Head is atraumatic, normocephalic. Hears conversational speech. No nasal drainage. RESPIRATORY: Non-labored respirations and equal bilateral excursions. CARDIOVASCULAR: Palpable 2+ radial pulses. Regular rate. Regular rhythm. ABDOMEN: Incisions clean dry and intact. Soft. No peritonitis. EITAN serosanguin ous MUSCULOSKELETAL: No gross deformity of the lower extremities noted. No clubbing. No cyanosis. SKIN: Good skin turgor. Well perfused. NEUROLOGIC: Cranial nerves I through XII grossly intact. No focal or lateralizing signs. PSYCH: Appropriate affect. Alert and oriented to person, place and time. CLINCAL LABS: White blood cell count improved from 17,000 and 12,000 ASSESSMENT: 1. Ruptured appendicitis PLAN: 1. Obtain CBC and BMP for today, WBC down to normal 6,000 2. Await bowel function, she is now passing flatus, start regular diet 3. Antibiotic management per infectious disease 4. Likely discharge home pending cultures. Objective - Vital Signs Vital signs: Vital Signs Temp 98.4 F 10/27/18 07:34 Pulse 88 10/27/18 07:34 Resp 16 10/27/18 07:34 BP 122/81 10/27/18 07:34 Pulse Ox 95 10/27/18 07:34 Intake & Output 10/26/18 10/27/18 10/27/18 18:59 06:59 18:59 Intake Total 2280 1401 Output Total 635 645 Balance 1645 756 Intake: Oral 2280 1401 Output: Drainage 35 45 Abdomen 35 45 Urine 600 600 Other: Voiding Method Toilet # Voids 1 - Labs CBC & Chem 7: 10/27/18 11:46 10/27/18 11:46 Labs: Microbiology - Last 24 Hours (Table) 10/24/18 17:45 Blood Culture - Preliminary Blood No Growth after 48 hours
[2018-10-27] MEDS: HYDROcodone/APAP 5-325MG 1 EACH TAB PO PRN (18:09)
--- NOTE | 2018-10-27 21:25 | PN ---
PROGRESS NOTE DATE OF SERVICE: 10/27/2018 I am covering for Dr. Meyer. This 47-year-old woman who was admitted with acute perforated appendicitis with abscess is being closely monitored. No chest pain. No palpitations. No fever. Dr. Ang performed surgery. The patient is on broad-spectrum IV antibiotics. EXAM: Alert and oriented x3. Pulse is 88, blood pressure 120/81, respirations 16, temperature 98.4, pulse ox 94% on room air. HEENT: Conjunctivae normal. Oral mucosa moist. NECK: No jugular venous distention. No lymph node enlargement. CARDIOVASCULAR: S1, S2. RESPIRATORY: Diminished breath sounds at the bases. No rhonchi, no crackles. ABDOMEN: Soft, status post surgery. LEGS: No swelling. NERVOUS SYSTEM: No focal deficits. LABS: WBC is 6, hemoglobin is 9.7. Cultures are pending at this time. ASSESSMENT: 1. Acute perforated appendicitis with abscess with possible sepsis present on admission, status post drainage of the pelvic abscess, open appendectomy. 2. History of cholecystectomy. 3. Increased WBC. 4. Relative hypotension, improved. 5. Increased random blood sugar. 6. Anemia, normocytic anemia of chronic disease. RECOMMENDATIONS AND DISCUSSION: Recommend to continue current medications, continue to monitor, symptomatic treatment. Otherwise, at this time we will monitor the patient closely. Otherwise, continue the antibiotics. Dr. Meyer will follow tomorrow. MMODL / IJN: [id number] /
[2018-10-28] MEDS: AMPICILLIN-SULBACTAM 3 GM in SODIUM CHLORIDE 0.9% 100 ML IVPB SCH ×3 (00:02→11:46)
[2018-10-28] MEDS: HYDROcodone/APAP 5-325MG 1 EACH TAB PO PRN ×2 (00:03→13:18)
--- NOTE | 2018-10-28 00:10 | PN ---
PROGRESS NOTE DATE OF SERVICE: 10/27/2018. REASON FOR FOLLOWUP: A pelvic abscess from ruptured appendicitis. INTERVAL HISTORY: The patient is currently afebrile. The patient has been feeling better today. Breathing comfortably. Denies having any chest pain, shortness of breath or cough. Still has some pain at the repeat drainage catheter insertion site. No nausea, vomiting or diarrhea. PHYSICAL EXAMINATION: Blood pressure 105/65 with a pulse of 84, temperature 98.2. She is 100% on room air. General description is a middle-aged female up in the chair in no distress. Respiratory system: Unlabored breathing, clear to auscultation anteriorly. Heart S1, S2. Regular rate and rhythm. Abdomen soft, no tenderness. LABS: Hemoglobin 9.7, white count 6.0, BUN of 9, creatinine 0.63. Blood culture negative. No OR cultures were done. DIAGNOSTIC IMPRESSION AND PLAN: Patient with a pelvic abscess from ruptured appendicitis, status post open appendectomy. The patient at this time is to continue with Unasyn. If the patient continues to improve, plan to finish therapy with oral Levaquin 10 days with close outpatient followup. MMODL / IJN: [id number] /
[2018-10-28] MEDS ORDERED: PANTOPRAZOLE 40 MG TABLET PO SCH (07:30)
[2018-10-28 08:24] LABS: Basophils % (A) 0 %; Eosinophils # (A) 0.3 k/uL (0-0.7); Eosinophils % (A) 5 %; HCT 29.8 % (34.0-46.0); HGB 10.1 gm/dL (11.4-16.0); Lymphocytes # (A) 0.8 k/uL (1.0-4.8); Lymphocytes % (A) 12 %; MCH 30.3 pg (25.0-35.0); MCHC 33.8 g/dL (31.0-37.0); MCV 89.6 fL (80.0-100.0); Mean Platelet Volume 7.5; Monocytes # (A) 0.4 k/uL (0-1.0); Monocytes % (A) 5 %; Neutrophils % (A) 75 %; Platelet Count 275 k/uL (150-450); RBC 3.33 m/uL (3.80-5.40); RDW 14.5 % (11.5-15.5); WBC 6.7 k/uL (3.8-10.6)
[2018-10-28] MEDS: ENOXAPARIN 40 MG/0.4 ML SYRINGE SQ SCH (08:51)
[2018-10-28 09:11] VITALS: BP 151/88; PULSE 99; RESP 24; TEMP 98.5
[2018-10-28] MEDS ORDERED: HYDROCORTISONE 1% CREAM 30 GM TUBE TOPICAL PRN (11:51)
--- NOTE | 2018-10-28 12:07 | P.PN ---
Subjective Progress Note Date: 10/28/18 Adilia Christianson is a 47 yo F with no significant PMH who presented to the ED at the request of her PCP for a 2 day history of waxing and waning RLQ pain. She denies any fevers, chills, or vomiting but does endorse nausea and poor appetite. Hx cholecystectomy in childhood. In the ED, vitals stable, WBC 17k urine ketone positive. Pt was taken for appendectomy. In the OR an abscess was noted and the appendix was adherent to adjacent bowel so was converted to open appendectomy. Her pain is improved after surgery but still not much appetite. 10/28/2018 Doing well, up to shower, tolerated exertion well. Complains some mild rash on back, states the hospital gown "tie" irritating her skin, mild itichiness. Passing flatus, no bowel movement. Currently on menstrual period as well. Tolerating diet with no nausea vomiting or diarrhea. Maintained on Unasyn as per infectious disease. Afebrile, normal WBC. Objective - Vital Signs Vital signs: Vital Signs Temp 98.5 F 10/28/18 08:07 Pulse 99 10/28/18 08:07 Resp 24 10/28/18 08:07 BP 151/88 10/28/18 08:07 Pulse Ox 100 10/28/18 08:07 Intake & Output 10/27/18 10/28/18 10/28/18 18:59 06:59 18:59 Intake Total 2039 1050 Output Total 28 40 30 Balance 2011 1010 -30 Intake: Intake, IV Titration 200 Amount Ampicillin-Sulbactam 3 gm 200 In Sodium Chloride 0.9% 100 ml @ 200 mls/hr IVPB Q6HR [facility] Rx#:[id number] Oral 2039 850 Output: Drainage 28 40 30 Abdomen 28 40 30 Other: Voiding Method Toilet Toilet # Voids 1 1 - Exam General: well nourished, well developed, NAD. Vitals reviewed Eyes: PERRL, EOMI, conjunctiva normal HENT: normocephalic, mucus membranes moist Neck: supple, no JVD Lungs: normal respiratory effort, no wheezes or rales CV: Regular rate and rhythm, no murmur. Peripheral pulses 2+ Abdomen: soft, generalized TTP. EITAN drain in place with serosanguinous output Lymph: no cervical or axillary LAD Skin: warm and dry. Contact dermatitis mild,mid bilateral back Neuro: A&Ox3, normal mood and affect Microbiology 10/24/18 17:45 Blood Blood Culture - Preliminary No Growth after 72 hours - Labs CBC & Chem 7: 10/28/18 07:12 10/27/18 11:46 Labs: Abnormal Lab Results - Last 24 Hours (Table) 10/27/18 10/27/18 10/28/18 Range/Units 11:46 11:46 07:12 RBC 3.27 L 3.33 L (3.80-5.40) m/uL Hgb 9.7 L 10.1 L (11.4-16.0) gm/dL Hct 29.3 L 29.8 L (34.0-46.0) % Lymphocytes # 0.8 L (1.0-4.8) k/uL Calcium 8.3 L (8.4-10.2) mg/dL Microbiology - Last 24 Hours (Table) 10/24/18 17:45 Blood Culture - Preliminary Blood No Growth after 72 hours Assessment and Plan Assessment: 1) Perforated appendicitis Current Visit: Yes Status: Acute Code(s): K35.32 - ACUTE APPENDICITIS WITH PERF AND LOC PERITONITIS, W/O ABSCS SNOMED Code(s): 81252185 (2) Pelvic abscess Current Visit: Yes Status: Acute Code(s): [id number] - SNOMED Code(s): 417182408 (3) contact dermatitis Plan: Continue on current medication regime ,monitoring and symptomatic treatment. Hydrocortisone cream ordered for contact dermatitis on pt's back.Discharge planning in progress as per infectious disease. Antibiotics as per ID. Follow-up with PCP or Sunday of this week. The impression and plan of care has been dictated as directed. : I performed a history and examination of this patient, discussed the same with the dictator. I agree with the dictator's note ,documented as a scribe. Any additional findings or plans will be noted.
--- NOTE | 2018-10-28 12:09 | P.DS ---
Providers Date of admission: 10/25/18 11:37 Expected date of discharge: 10/28/18 Attending physician: Scott Ang Consults: 10/25/18 10:35 Consult Physician Routine Consulting Provider: Kenton Meyer Consult Reason/Comments: Management Do you want consulting provider notified?: Yes Consult Physician Routine Consulting Provider: Carisa Dumont Consult Reason/Comments: Perforated appendicitis Do you want consulting provider notified?: Yes Primary care physician: Evonne Valencia [facility] Course: 47-year-old female presented to emergency room with a chief complaint of abdominal pain. Patient was found to have acute appendicitis. She underwent open appendectomy with drainage of pelvic abscess and EITAN drain placement. Patient has been doing well postoperatively. She has been evaluated by infectious disease. Pain controlled on oral medications. Tolerating diet. Denies nausea or vomiting. Vital signs stable. White count within normal limits. She is stable for discharge home today with EITAN drain. Prescription for Augmentin sent to pharmacy per infectious disease. Please see EMR for further hospital course details. Discharge diagnosis 1. Abdominal pain 2. Acute appendicitis, status post open appendectomy and drainage of pelvic abscess Nurse practitioner note has been reviewed by physician. Signing provider agrees with the documented findings, assessment, and plan of care. Patient Condition at Discharge: Stable Plan - Discharge Summary Discharge Rx Participant: Yes New Discharge Prescriptions: New Docusate [Colace] 100 mg PO BID #20 capsule HYDROcodone/APAP 5-325MG [Rachel 5-325] 1 tab PO Q6HR PRN #10 tab PRN Reason: Pain Amoxic-Pot Clav 875-125Mg [Augmentin 875-125] 1 tab PO Q12HR #20 tablet No Action Cetirizine HCl [Zyrtec] 10 mg PO DAILY PRN PRN Reason: Allergy Symptoms Vitamin B-3 1,000mg 1,000 mg PO DAILY Naproxen Sodium [Aleve] 440 mg PO BID PRN PRN Reason: Pain Cider Vinegar [Apple Cider Vinegar] 300 mg PO DAILY Ascorbic Acid [Vitamin C] 500 mg PO DAILY Cyanocobalamin [Vitamin B-12] 500 mcg PO DAILY Cholecalciferol [Vitamin D3 (25 Mcg = 1000 Iu)] 4,000 unit PO DAILY Discharge Medication List Ascorbic Acid [Vitamin C] 500 mg PO DAILY 10/24/18 [History] Cetirizine HCl [Zyrtec] 10 mg PO DAILY PRN 10/24/18 [History] Cholecalciferol [Vitamin D3 (25 Mcg = 1000 Iu)] 4,000 unit PO DAILY 10/24/18 [History] Cider Vinegar [Apple Cider Vinegar] 300 mg PO DAILY 10/24/18 [History] Cyanocobalamin [Vitamin B-12] 500 mcg PO DAILY 10/24/18 [History] Naproxen Sodium [Aleve] 440 mg PO BID PRN 10/24/18 [History] Vitamin B-3 1,000mg 1,000 mg PO DAILY 10/24/18 [History] Docusate [Colace] 100 mg PO BID #20 capsule 10/25/18 [Rx] HYDROcodone/APAP 5-325MG [Rachel 5-325] 1 tab PO Q6HR PRN #10 tab 10/25/18 [Rx] Amoxic-Pot Clav 875-125Mg [Augmentin 875-125] 1 tab PO Q12HR #20 tablet 10/28/18 [Rx] Follow up Appointment(s)/Referral(s): Evonne Valencia MD [Primary Care Provider] - 3 Days Carisa Dumont MD [STAFF PHYSICIAN] - 1 Week Scott Ang MD [STAFF PHYSICIAN] - 1 Week Patient Instructions/Handouts: Ricardo-Reyes Drain Care (DC), Ricardo-Reyes Drain Care (GEN) Activity/Diet/Wound Care/Special Instructions: No driving while taking Rachel No lifting over 10 pounds You may shower. No soaking or tub baths Very light activity until you are reevaluated at your follow up appointment with your surgeon
--- NOTE | 2018-10-28 12:11 | PN ---
PROGRESS NOTE DATE OF SERVICE: 10/28/2018 REASON FOR FOLLOWUP: Pelvic abscess from ruptured appendicitis. INTERVAL HISTORY: The patient is currently afebrile. The patient has been breathing comfortably. Denies having any chest pain or cough. No nausea, no vomiting. Has been tolerating her diet. No diarrhea or any worsening pain to the abdominal area. Still has serosanguineous secretion in her drain. PHYSICAL EXAMINATION: On examination, blood pressure 151/88 with a pulse of 99, temperature 98.5. She is 100% on room air. General description is a middle age female up in the room in no distress. RESPIRATORY SYSTEM: Unlabored breathing, clear to auscultation anteriorly. HEART: S1, S2. Regular rate and rhythm. ABDOMEN: Soft. No tenderness. LABS: Hemoglobin is 10.1, white count 6.7. BUN of 9, creatinine 0.63. Blood culture has been negative. DIAGNOSTIC IMPRESSION AND PLAN: Patient with pelvic abscess from ruptured appendicitis, status post open appendectomy. The patient clinically responded to the IV Unasyn. White count has been normal. No fever. The patient will be able to finish therapy with oral Augmentin 875 b.i.d. for 10 days. Prescription has been sent to the pharmacy. Close outpatient followup. Continue supportive care. MMODL / IJN: [id number] /
--- NOTE | 2018-10-28 12:48 | CDI ---
Documentation Clarification Form Date: 10/28/2018 12:28:52 PM From: Megan Heath Phone: Admit Date: 10/25/2018 11:37:00 AM Patient Name: Adilia Christianson Visit Number: [id number] Discharge Date: ATTENTION: The Clinical Documentation Specialists (CDI) and [facility] Coding Staff appreciate your assistance in clarifying documentation. Please respond to the clarification below the line at the bottom and electronically sign. The CDI & [facility] Coding staff will review the response and follow-up if needed. Please note: Queries are made part of the Legal Health Record. If you have any questions, please contact the author of this message via ITS. Dr. Carisa Moodyed The patient presented with right lower quadrant abdominal pain for 2 days. 10/26/18 IM (Dr. Hoang): Acute perforated appendicitis with abscess post drainage of pelvic abscess and open appencectomy with possible sepsis, present on admission History/Risk Factors: No reported history, prior Cholecystectomy Clinical Indicators:47-year-old female with right lower quadrant abdominal pain, it is tender to palpations in RLQ. Vital signs on admission: 133/89 120 22 99.4, 133/'93 105 18 98.4 WBC 17.4, 15.2 Lactic acid: 0.9 CT abdomen/pelvis consistent with acute appendicitis. Blood cultures: No growth after 72 hours Other Clinical Indicators: 10/25/18 OR report notes acute perforated appendicitis with abscess post open appendecdtomy Treatment: Zosyn IV DC started Unasyn IV IV fluids Monitor CBC Open Appendectomy with drainage of pelvic abscess ID Consult: Present with abdominal pain who did have fever and elevated white count, noted to have pelvic abscess and perforated appendicitis. In your professional opinion, please clarify if these findings signify one of the following conditions, whether the condition is POA, and cause, if known: Condition Sepsis ruled out Sepsis ruled in Other, please specify Unable to determine Present on Admission Yes No SIRS Criteria (2 or more of the following may indicate SIRS): -Temperature < 96.8F (36C) or > 101.0F (38.3C) -Heart Rate > 90 bpm -Respiratory Rate > 20 breaths/min or PaCO2 < 32 mmHg -White Blood Cell Count > 12,000 or < 4,000 cells/mm3 or > 10% bands -Lactate >2.0 mmol/L (>4.0 is equivalent to septic shock) (Last Revision: May 2017) ___where you see the evidence of sepsis in this pt ??? if there was it would have been documented in the notes MTDD
--- NOTE | 2018-10-31 08:18 | CDI ---
Documentation Clarification Form Date: 10/31/2018 From: Treasure Ulloa Phone: If questions call Reva Bustamante @ [phone], Hours-8:30 am & 5 pm M- F Admit Date: 10/25/2018 11:37:00 AM Patient Name: Adilia Christianson Visit Number: [id number] Discharge Date: 10/28/2018 2:20:00 PM ATTENTION: The Clinical Documentation Specialists (CDI) and [facility] Coding Staff appreciate your assistance in clarifying documentation. Please respond to the clarification below the line at the bottom and electronically sign. The CDI & [facility] Coding staff will review the response and follow-up if needed. Please note: Queries are made part of the Legal Health Record. If you have any questions, please contact the author of this message via ITS. Dr. Emi Murry Conflicting documentation has been found in the medical record: 10/26-Dr Hoang- Acute perforated appendicitis with abscess post drainage of pelvic abscess and open appendectomy with possible sepsis, present on admission. History/Risk Factors: no reported history Clinical Indicators: 47-year-old female with right lower quadrant abdominal pain, it is tender to palpations in RLQ. Vital signs on admission: 133/89 120 22 99.4, 133/93 105 18 98.4 WBC 17.4, 15.2 Lactic acid: 0.9 Blood cultures: No growth after 72 hours Treatment: Zosyn IV DC started Unasyn IV IV fluids Monitor CBC In your opinion, what is the most clinically appropriate diagnosis for this patient? Sepsis ruled in (POA) Sepsis ruled in (Not POA) Sepsis ruled out Other explanation of clinical findings Unable to determine (no explanation for clinical findings) I am not the surgeon who did her surgery. Please defer to Dr. Ang. KM 10/31/18 @10:06 [facility]
--- NOTE | 2018-10-31 11:44 | CDI ---
Documentation Clarification Form Date: 10/31/2018 From: Treasure Ulloa Phone: If questions call Reva Bustamante @ [phone], Hours-8:30 am & 5 pm M- F Admit Date: 10/25/2018 11:37:00 AM Patient Name: Adilia Christianson Visit Number: [id number] Discharge Date: 10/28/2018 2:20:00 PM ATTENTION: The Clinical Documentation Specialists (CDI) and [facility] Coding Staff appreciate your assistance in clarifying documentation. Please respond to the clarification below the line at the bottom and electronically sign. The CDI & [facility] Coding staff will review the response and follow-up if needed. Please note: Queries are made part of the Legal Health Record. If you have any questions, please contact the author of this message via ITS. Dr. Scott Ang Conflicting documentation has been found in the medical record: 10/26-Dr Hoang- Acute perforated appendicitis with abscess post drainage of pelvic abscess and open appendectomy with possible sepsis, present on admission. History/Risk Factors: no reported history Clinical Indicators: 47-year-old female with right lower quadrant abdominal pain, it is tender to palpations in RLQ. Vital signs on admission: 133/89 120 22 99.4, 133/93 105 18 98.4 WBC 17.4, 15.2 Lactic acid: 0.9 Blood cultures: No growth after 72 hours Treatment: Zosyn IV DC started Unasyn IV IV fluids Monitor CBC In your opinion, what is the most clinically appropriate diagnosis for this patient? Sepsis ruled in (POA) Sepsis ruled in (Not POA) Sepsis ruled out Other explanation of clinical findings Unable to determine (no explanation for clinical findings) Sepsis ruled in at admission MTDD
== END 2018-10-28 14:20 | disposition home or self-care (01) | DRG 853 ==
LOC: EC 14:42 → 6PED 17:17 → OBSVTOIN 10-25 11:37
PROVIDERS: ADMIT Surgery; ATTEND Surgery
PROC: 0WJG4ZZ Inspection of Peritoneal Cavity, Percutaneous Endoscopic Approach (ICD-10-PCS; 2018-10-25)
PROC: 0W9J4ZZ Drainage of Pelvic Cavity, Percutaneous Endoscopic Approach (ICD-10-PCS; 2018-10-25)
PROC: 0DTJ0ZZ Resection of Appendix, Open Approach (ICD-10-PCS; principal; 2018-10-25 09:45)
DX: A41.9 Sepsis, unspecified organism (principal); K35.33 Acute appendicitis with perforation, localized peritonitis, and gangrene, with abscess; D63.8 Anemia in other chronic diseases classified elsewhere; L25.9 Unspecified contact dermatitis, unspecified cause; Z79.899 Other long term (current) drug therapy; Z90.49 Acquired absence of other specified parts of digestive tract; Z98.890 Other specified postprocedural states
CPT/HCPCS: 36415; 74177; 80048; 80053; 81001; 81025; 83605; 83690; 85025; 87040; 88304; 88342; 96365; 99285

== ENCOUNTER → 2019-07-04 | Outpatient (CLI) | payer BC | END | disposition home or self-care (01) | LOC: LABWHC1 11:17 | PROVIDERS: ATTEND Surgery | DX: Z01.818 Encounter for other preprocedural examination (principal); Z11.59 Encounter for screening for other viral diseases; K43.0 Incisional hernia with obstruction, without gangrene; F17.210 Nicotine dependence, cigarettes, uncomplicated; D64.89 Other specified anemias | CPT/HCPCS: 85025; 86850; 86900; 86901; 87635 ==

== ENCOUNTER 2019-07-09 08:18 | Day surgery (SDC) | payer BC ==
[2019-07-04 12:29] LABS: Basophils % (A) 1 %; Eosinophils # (A) 0.2 k/uL (0-0.7); Eosinophils % (A) 4 %; HCT 42.8 % (34.0-46.0); HGB 13.5 gm/dL (11.4-16.0); Lymphocytes # (A) 1.8 k/uL (1.0-4.8); Lymphocytes % (A) 27 %; MCH 27.6 pg (25.0-35.0); MCHC 31.6 g/dL (31.0-37.0); MCV 87.1 fL (80.0-100.0); Mean Platelet Volume 7.8; Monocytes # (A) 0.3 k/uL (0-1.0); Monocytes % (A) 5 %; Neutrophils # (A) 4.3 k/uL (1.3-7.7); Neutrophils % (A) 63 %; Platelet Count 258 k/uL (150-450); RBC 4.91 m/uL (3.80-5.40); RDW 13.8 % (11.5-15.5); WBC 6.9 k/uL (3.8-10.6)
[2019-07-04 14:43] VITALS: BMI 30.1
[~2019-07-09 08:18] MED LIST: ACETAMINOPHEN TAB 500 MG TAB PO ONE; DEXAMETHASONE SOD PHOSPHATE 10 MG/ML 1 ML VIAL IV ONE; HEPARIN SODIUM,PORCINE 5,000 UNIT/ML 1 ML VIAL SQ ONE; HYDROmorphone 0.5 MG/0.5 ML SYRINGE IVP PRN; LACTATED RINGERS 1,000 ML IV SCH; LIDOCAINE 1% (10MG/ML) FOR IV START INTRADERMA PRN; ONDANSETRON 4 MG/2 ML VIAL IVP ONE; SCOPOLAMINE 1.5MG/72HR PATCH TRANSDERM ONE; fentaNYL (PF) 50 MCG/ML 2 ML AMP IV PRN
[2019-07-09] MEDS ORDERED: SCOPOLAMINE 1.5MG/72HR PATCH TRANSDERM ONE (08:53)
--- NOTE | 2019-07-09 09:34 | P.GSHP ---
History of Present Illness H&P Date: 07/09/19 Chief Complaint: Incisional hernia This a 48-year-old female who presents today for laparoscopic robotic cyst pair of incisional hernia. Patient developed a midline incisional hernia. The hernia is reducible. Past Medical History Past Medical History: Hypertension Additional Past Medical History / Comment(s): no Rx needed currently for BP, phlebitis post up, arthritis left knee, History of Any Multi-Drug Resistant Organisms: None Reported Past Surgical History: Appendectomy, Cholecystectomy Additional Past Surgical History / Comment(s): wisdom teeth, eye surgery as infant Past Anesthesia/Blood Transfusion Reactions: Motion Sickness, Postoperative Nausea & Vomiting (PONV) Smoking Status: Never smoker - Past Family History Mother History Unknown: Yes Family Medical History: Cancer Additional Family Medical History / Comment(s): breast Medications and Allergies Home Medications Medication Instructions Recorded Confirmed Type Cetirizine HCl [Zyrtec] 10 mg PO DAILY PRN 10/24/18 07/09/19 History Cholecalciferol [Vitamin D3 (25 5,000 unit PO DAILY 10/24/18 07/09/19 History Mcg = 1000 Iu)] Cider Vinegar [Apple Cider Vinegar] 1,200 mg PO DAILY 10/24/18 07/09/19 History Cyanocobalamin [Vitamin B-12] 1,000 mcg PO DAILY 10/24/18 07/09/19 History Naproxen Sodium [Aleve] 440 mg PO BID PRN 10/24/18 07/09/19 History Ascorbic Acid [Vitamin C] 1,300 mg PO DAILY 07/04/19 07/09/19 History Vitamin B Complex 1 each PO DAILY 07/04/19 07/09/19 History Allergies Allergy/AdvReac Type Severity Reaction Status Date / Time amoxicillin Allergy Rash/Hives Verified 07/09/19 08:37 Surgical - Exam Vital Signs Temp Pulse Resp BP Pulse Ox 98.8 F 80 16 136/80 98 07/09/19 08:39 07/09/19 08:39 07/09/19 08:39 07/09/19 08:39 07/09/19 08:39 - General well developed, well nourished - Eyes PERRL - ENT normal pinna - Neck no masses - Respiratory normal expansion - Cardiovascular Rhythm: regular - Abdomen Abdomen: soft, non tender Hernia: incisional (5 cm incisional hernia) Results - Labs 07/04/19 11:33 Assessment and Plan Assessment: Incisional hernia. We'll perform laparoscopic robotic-assisted repair.
[2019-07-09] MEDS ORDERED: MIDAZOLAM 2 MG/2 ML VIAL ONE (09:47)
[2019-07-09] MEDS ORDERED: ROCURONIUM BROMIDE 10 MG/ML 5 ML VIAL IV ONE (09:47)
[2019-07-09] MEDS ORDERED: NEOSTIGMINE 1 MG/ML 10 ML VIAL ONE (09:47)
[2019-07-09] MEDS ORDERED: KETOROLAC 30 MG/ML 1 ML VIAL ONE (09:47)
[2019-07-09] MEDS ORDERED: SUCCINYLCHOLINE CHLORIDE 100 MG/5 ML SYR IV ONE (09:47)
[2019-07-09] MEDS ORDERED: PROPOFOL 10 MG/ML 20 ML VIAL IV ONE (09:47)
[2019-07-09] MEDS ORDERED: KETAMINE 10 MG/ML 20 ML VIAL ONE (09:47)
[2019-07-09] MEDS ORDERED: fentaNYL (PF) 50 MCG/ML 2 ML AMP ONE (09:47)
[2019-07-09] MEDS ORDERED: LIDOCAINE 1% INJ 10MG/ML (20 ML MDV) ONE (09:47)
[2019-07-09] MEDS ORDERED: GLYCOPYRROLATE 0.2 MG/ML 2 ML VIAL ONE (09:47)
[2019-07-09] MEDS ORDERED: BUPIVACAINE (PF) 0.5% 30 ML VIAL SQ ONE (10:09)
[2019-07-09] MEDS ORDERED: LACTATED RINGERS 1,000 ML IV ONE (10:29)
--- NOTE | 2019-07-09 11:00 | P.OP ---
Date of Procedure: 07/09/19 Preoperative Diagnosis: Incisional hernia Postoperative Diagnosis: Incisional hernia Adhesions Procedure(s) Performed: Laparoscopic robotic repair of incisional hernia Lysis of adhesions Anesthesia: TORY Surgeon: Scott Ang Estimated Blood Loss (ml): 5 Pathology: none sent Condition: stable Disposition: PACU Description of Procedure: The patient was placed on the operating table in the supine position. He received general anesthesia. His abdomen was prepped and draped usual fashion. Using a 5 mm optical trocar under direct visualization the peritoneal cavity was entered in the left upper quadrant. The abdomen was then insufflated. The laparoscope was placed back into the perineal cavity. Next a 8 mm robotic trocar was placed in the left lower quadrant and a 12 mm robotic trocar was placed in the left lateral position. The original 5 mm trocar was exchanged for a 8 mm robotic trocar. The patient's placed in the left side up position. And the patient was docked to the robot. Patient had adhesions located along her midline laparotomy scar. Using the hook cautery the adhesions were lysed. The incisional hernia was visualized. Using hook cautery the peritoneum over the incisional hernia was excised. The fascial opening was repaired using 0V LOC suture. Next a piece of 11 cm round ventral light ST mesh was placed into the. Cavity and secured with 2 OV lock suture. The patient was undocked the robot. The needles were retrieved. The fascia of the 12 mm trocar site was closed with 0 Ethibond suture. Skin was closed interrupted 3-0 Monocryl suture. Dermabond dressings was applied. Patient tolerated procedure well and was sent to recovery room stable condition.
[2019-07-09 11:04] VITALS: TEMP 98.6
[2019-07-09 12:12] VITALS: RESP 16
[2019-07-09] MEDS ORDERED: HYDROcodone/APAP 5-325MG 1 EACH TAB PO ONE (12:20)
[2019-07-09 12:48] VITALS: BP 135/83; PULSE 80
== END 2019-07-09 13:03 | disposition home or self-care (01) ==
LOC: OR 08:18
PROVIDERS: ATTEND Surgery
DX: K43.2 Incisional hernia without obstruction or gangrene (principal); K66.0 Peritoneal adhesions (postprocedural) (postinfection); I10 Essential (primary) hypertension; M17.12 Unilateral primary osteoarthritis, left knee; Z90.49 Acquired absence of other specified parts of digestive tract; Z98.818 Other dental procedure status; Z98.890 Other specified postprocedural states; Z88.0 Allergy status to penicillin; Z91.09 Other allergy status, other than to drugs and biological substances; Z79.899 Other long term (current) drug therapy; Z80.3 Family history of malignant neoplasm of breast
CPT/HCPCS: 49654; 81025; C1781; J2250; J1644; J1100; J2710; J0690; J2405; J2001; J3010; J1885; J0330; J2704; J1170; 85025; 86850; 86900; 86901; 93005